=== PATIENT | male | born 1990 | race Caucasian/White ===

== ENCOUNTER 2023-06-17 23:00 | Emergency (ER) | payer OTHER, SELFPAY ==
[2023-06-17 23:15] VITALS: BP 134/80; PULSE 134; RESP 22; TEMP 38.2; O2SAT 97; BMI 27.9
--- NOTE | 2023-06-17 23:32 | ED_ITS ---
HPI - General Adult General Chief complaint: Fever Stated complaint: fever, shortness of breath Time Seen by Provider: 06/17/23 23:24 History of Present Illness HPI narrative: This 33-year-old male comes in reporting generalized malaise and fever that hit him rather suddenly earlier this evening about 3 or 4 hours ago. He did take some Tylenol at that time. He arrives here with a temperature of 100.8? F and has some tachycardia but is maintaining sufficient oximetry and not using a ccessory muscles. He does not report any cough or shortness of breath. He does not have any nasal congestion. He does report some brief episodes of chest discomfort. Related Data Home Medications Medication Instructions Recorded Confirmed fluoxetine 20 mg capsule 20 mg PO DAILY 06/17/23 06/17/23 Allergies Allergy/AdvReac Type Severity Reaction Status Date / Time No Known Drug Allergies Allergy Verified 06/17/23 23:20 Review of Systems Status of ROS: Reports: 10 or more systems reviewed and unremarkable except as noted in History and below Narrative: Constitutional: No weight gain or loss. Eyes: No discharge. No vision changes. HENT: No congestion, no sore throat, no ear pain. Cardiovascular: No palpitations. Respiratory: No shortness of breath, no wheezes, no cough. Gastrointestinal: No abdominal pain, no vomiting, no diarrhea. Genitourinary: No dysuria, no hematuria. Musculoskeletal: Normal range of motion. Skin: No rashes, no pruritis. Neurological: No dizziness, weakness, sensory change, speech change. Endo/Heme/Allergies: No bruising or bleeding. No polydipsia. Pysch: no suicidality, no anxiety, no insomnia. All other systems reviewed and are negative. [facility] Medical History (Updated 06/18/23 @ 00:00 by Jose Elias Castillo MD) CHRIS (generalized anxiety disorder) ?F41.1 - Generalized anxiety disorder (ICD-10) Major depressive disorder ?F32.9 - Major depressive disorder, single episode, unspecified (ICD-10) Exam Narrative: Exam Narrative: Constitutional: Well-developed, well-nourished, no acute distress. Fever. HEENT: Normocephalic, atraumatic. Neck: Normal range of motion. Nontender. Supple. Heart: Regular. No murmurs. Tachycardia. Intact distal pulses. Lungs: Clear to auscultation. No chest discomfort. No wheezes, rhonchi, or rales. Abdomen: Normal bowel sounds. Nontender. No rebound tenderness. Genitalia: Deferred. Back: No midline tenderness. Normal range of motion. Extremities: Normal range of motion. No injury. Skin: Intact. No rash. Warm. No erythema or pallor. Neurologic: No altered sensation. No weakness. Alert and oriented. Psychiatric: No suicidality. No anxiety or depression. No insomnia. Nursing notes and vitals signs are reviewed. Const: Vital Signs, click to edit/add: Vital Signs - 24 hr 06/17/23 23:15 Temperature 100.8 F H Pulse Rate [Left P ulse Oximeter] 134 H Respiratory Rate 22 Blood Pressure [Ri ght Upper Arm] 134/80 Pulse Oximetry 97 Oxygen Delivery Me thod Room Air Course Vital Signs Vital signs: Initial Vital Signs Temperature 100.8 F H 06/17/23 23:15 Temperature Source Temporal Artery Scan 06/17/23 23:15 Pulse Rate 134 H 06/17/23 23:15 Respiratory Rate 22 06/17/23 23:15 Blood Pressure 134/80 06/17/23 23:15 Blood Pressure Mean 98 06/17/23 23:15 Blood Pressure Position Semi-Fowlers 06/17/23 23:15 Pulse Oximetry 97 06/17/23 23:15 Oxygen Delivery Method Room Air 06/17/23 23:15 Vital Signs Temperature 100.8 F H 06/17/23 23:15 Pulse Rate 134 H 06/17/23 23:15 Respiratory Rate 22 06/17/23 23:15 Blood Pressure 134/80 06/17/23 23:15 Pulse Oximetry 97 06/17/23 23:15 Oxygen Delivery Method Room Air 06/17/23 23:15 Temperature 100.8 F H 06/17/23 23:15 Pulse Rate 134 H 06/17/23 23:15 Respiratory Rate 22 06/17/23 23:15 Blood Pressure 134/80 06/17/23 23:15 Pulse Oximetry 97 06/17/23 23:15 Oxygen Delivery Method Room Air 06/17/23 23:15 Medications Administered Medications: Generic Name Dose Route Start Last Admin Trade Name Freq PRN Reason Stop Dose Admin Dexamethasone 10 mg 06/17/23 23:34 12/17/23 23:37 Dexamethasone 10 Mg/Ml Inj PO 06/17/23 23:35 10 mg ONCE ONE Administration Ibuprofen 600 mg 06/17/23 23:24 06/17/23 23:33 Ibuprofen 200 Mg Tablet PO 06/17/23 23:25 600 mg ONCE ONE Administration Medical Decision Making MDM Narrative Medical decision making narrative: This patient arrives with report of generalized malaise and does have a fever with temperature at 100.8? F. He did receive ibuprofen 600 mg orally along with dexamethasone 10 mg orally. Nasopharyngeal swab is obtained to evaluate for viral infection. His exam is normal except for some tachycardia. ECG Data Attestation: I personally reviewed and interpreted this ECG as follows: Interpretation: Sinus tachycardia, rate is 127 beats per minute. There are no specific ST or T- wave abnormalities. Discharge Plan Discharge Clinical Impression: Acute upper respiratory infection Patient Disposition: Home, Self-Care Condition: Unchanged Additional Instructions: Use [id number] medicines as needed and directed to treat symptoms. Follow up with MD or return if worsening. Prescriptions: No Action fluoxetine 20 mg capsule 20 mg PO DAILY Stand Alone Forms: [employer] Info Instructions
[2023-06-17] MEDS: IBUPROFEN 200 MG TABLET 600 MG PO (23:33)
[2023-06-17] MEDS: dexAMETHasone 10 MG/ML inj PO (23:37)
[2023-06-18 00:10] LABS: PCR FLU A Negative PCR FLU A (Negative); PCR FLU B Negative PCR FLU B (Negative); PCR RSV Negative PCR RSV (Negative)
[2023-06-18 00:21] LABS: SARS PCR* Negative SARS-CoV-2 (Negative)
[2023-06-18 00:46] VITALS: BP 134/80; PULSE 126; RESP 20; O2SAT 98
== END 2023-06-18 00:59 | disposition home or self-care (01) ==
LOC: ED 06-18 00:36
PROVIDERS: Emergency Provider Emergency Medicine Emergency Medical Services
DX: J06.9 Acute upper respiratory infection, unspecified (principal)
CPT/HCPCS: 87631; 93005; 95992; 99284; A9270; J1100